=== PATIENT | female | born 1975 | race Caucasian/White ===

== ENCOUNTER 2019-01-30 11:16 | Emergency (ER) | payer OTHER ==
[~2019-01-30] VITALS: Ht 162.6 cm; Wt 104.3 kg
--- NOTE | 2019-01-30 11:50 | NUR ---
Dr Sandoval at the bedside for MSE.
[2019-01-30] MEDS ORDERED: DOCUSATE SODIUM 100 MG/10 ML LIQUID UDC OT ONE (12:00)
[2019-01-30] MEDS ORDERED: DOCUSATE SODIUM 100 MG CAPSULE PO ONE ×2 (12:01→12:15)
--- NOTE | 2019-01-30 12:15 | NUR ---
Rt ear irrigted per MD order by Alan Ochoa.pt tolorated well.
[2019-01-30 12:34] VITALS: BP 116/81
--- NOTE | 2019-01-30 12:34 | NUR ---
Patient discharged to home in stable conditon. Written and verbal after care instructions given. Patient verbalizes understanding of instructions.
== END 2019-01-30 12:35 | disposition home or self-care (01) ==
LOC: ER 11:16
DX: B36.9 Superficial mycosis, unspecified (principal); H62.43 Otitis externa in other diseases classified elsewhere, bilateral; H61.23 Impacted cerumen, bilateral; Z90.89 Acquired absence of other organs
CPT/HCPCS: A4663